=== PATIENT | female | born 1985 | race Caucasian/White ===

== ENCOUNTER 2018-09-20 03:08 | Inpatient (IN) | payer MEDICAID, OTHER ==
[~2018-09-20] VITALS: Ht 154.9 cm; Wt 89.5 kg
[2018-09-20 03:21] VITALS: Ht 154.9 cm; Wt 89.5 kg
[2018-09-20 03:22] VITALS: BP 116/72; PULSE 91; RESP 18
[2018-09-20] MEDS: LACTATED RINGER'S 1,000 ML IV SCH ×3 (03:54→08:34)
[2018-09-20] MEDS ORDERED: OXYTOCIN 30 UNITS/LR 500 ML IV SCH ×4 (04:00→10:06)
[2018-09-20] MEDS ORDERED: OXYTOCIN 30 UNITS/LR 500 ML IV PRN ×2 (04:00→10:30)
[2018-09-20] MEDS ORDERED: METHYLERGONOVINE 0.2 MG INJ IM PRN ×2 (04:00→10:30)
[2018-09-20] MEDS ORDERED: CARBOPROST 250 MCG INJ IM PRN ×2 (04:00→10:30)
[2018-09-20] MEDS ORDERED: MISOPROSTOL 200 MCG TAB PR PRN ×2 (04:00→10:30)
[2018-09-20] MEDS ORDERED: BUTORPHANOL 2 MG INJ IV PRN (04:00)
[2018-09-20] MEDS ORDERED: LIDOCAINE 1% (MPF) 30 ML INJ INJ PRN (04:00)
--- NOTE | 2018-09-20 04:13 | HP ---
Date/Time of Note Date/Time of Note DATE: 09/20/18 TIME: 04:12 OB - History Hx of Present Free Text/Dictation @39+wks GA in labor : 6 Para: 4 Care: Good Care Ultrasounds: Normal mid trimester US Obstetrical Complications: None Medical Complications: None Past Family/Social History * Past Medical, Surgical, Family and Obstetric Histories reviewed from c briones. OB Admission Exam Vital Signs Vital Signs Vital Signs Date Temp Pulse Resp B/P (MAP) Pulse Ox O2 O2 Flow FiO2 Time Delivery Rate 09/20/18 97.8 91 18 116/72 Room Air 03:22 (87) Physical Exam Abdomen: WNL Extremities: Normal Cervical Dilatation: 6cm Effacement: 75% Station: -1 Membranes: Intact Heart Rate: 140's Accelerations: Accelerations Present Decelerations: No Decelerations Varibility: Moderate Contractions on Admission: 6-10 Minutes Apart Last 72 hours Lab Results OB Assessment/Plan Reason for admission: observation Other Assessment: PMH Denies PSH Denies Plan: Expectant Management TARIK RODRIGUEZ M.D. September 20, 2018 04:13
--- NOTE | 2018-09-20 04:29 | PREAC ---
Date/Time of Note Date/Time of Note DATE: 09/20/18 TIME: : Anesthesia Eval and Record Evaluation Time Pre-Procedure Interview DATE: 09/20/18 TIME: 04:28 Age 33 Sex female NPO: 8 hrs Preoperative diagnosis labor pain Planned procedure epidural Past Medical History Past Medical History: None Surgery & Anesthesia Issues No known issue Meds Anticoagulation: No Beta Mili within 24 hr: No Reason Beta Mili not given: Pt. not on B-Mili Current Medications Lactated Ringer's 1,000 ml @ 125 mls/hr Q8H IV Last administered on 09/20/18at 03:54; Admin Dose 125 MLS/HR; Start 09/20/18 at 03:41 Butorphanol Tartrate (Stadol) 2 mg Q2H PRN IV .PAIN SCALE 6-10; Start 09/20/18 at 04:00 Lidocaine (Xylocaine 1% (Mpf)) 30 ml ONCE PRN INJ .EPISIOTOMY; Start 09/20/18 at 04:00 Oxytocin/Lactated Ringer's 500 ml @ 500 mls/hr ONCE POST IV ; Start 09/20/18 at 04:00 Oxytocin/Lactated Ringer's 500 ml @ 125 mls/hr POST IV ; Start 09/20/18 at 04:00 Oxytocin/Lactated Ringer's 500 ml @ 0 mls/hr ONCE PRN IV .VAGINAL BLEEDING; Start 09/20/18 at 04:00 Methylergonovine Maleate (Methergine) 0.2 mg ONCE PRN IM .VAGINAL BLEEDING; Start 09/20/18 at 04:00 Carboprost Tromethamine (Hemabate) 250 mcg ONCE PRN IM .VAGINAL BLEEDING; Start 09/20/18 at 04:00 Misoprostol (Cytotec) 1,000 mcg ONCE PRN NM .VAGINAL BLEEDING; Start 09/20/18 at 04:00 Oxytocin/Lactated Ringer's 500 ml @ 0 mls/hr FOR AUGMENTATION IV ; Start 09/20/18 at 04:30 Meds reviewed: Yes Allergies Coded Allergies: No Known Allergy (Verified Allergy, Unknown, 07/14/06) Allergies Reviewed: Yes Labs/Studies Labs Reviewed: Reviewed by anesthesiologist Result Diagram: 09/20/18 0330 Laboratory Tests 09/20/18 03:30 test: Positive Studies: ECG (n/a), CXR (n/a) Pre-procedure Exam Last vitals Vital Signs Date Temp Pulse Resp B/P (MAP) Pulse Ox O2 O2 Flow FiO2 Time Delivery Rate 09/20/18 97.8 91 18 116/72 Room Air 03:22 (87) Airway: Adequate mouth opening Mallampati: Mallampati I Teeth: Normal Lung: Normal Heart: Normal ASA Physical Status ASA physical status: 2 Emergency: None Planned Anesthetic Neuraxial: Epidural Planned Pain Management Epidural Pre-operative Attestations Prior to commencing anesthesia and surgery, the patient was re-evaluated, there was verification of: *The patient's identity *The results of appropriate recent lab work and preoperative vital signs *The above evaluation not changing prior to induction *Anesthetic plan, risk benefits, alternative and complications discussed with patient/family; questions answered; patient/family understands, accepts and wishes to proceed. ALMA KIRAN MD September 20, 2018 04:29
[2018-09-20] MEDS ORDERED: DIPHENHYDRAMINE 50 MG INJ IV PRN (04:30)
[2018-09-20] MEDS ORDERED: NALOXONE (0.4 MG/ML) INJ IV PRN (04:30)
[2018-09-20] MEDS ORDERED: FENTAnyl 2MCG/ML-ROPIV 0.2% 100 ML BAG EPI SCH (04:30)
[2018-09-20] MEDS ORDERED: ONDANSETRON 4 MG INJ IV PRN (04:30)
--- NOTE | 2018-09-20 05:09 | PAC ---
Date/Time of Note Date/Time of Note DATE: 09/20/18 TIME: 05:08 Post-Anesthesia Notes Post-Anesthesia Note Last documented vital signs Vital Signs Date Temp Pulse Resp B/P (MAP) Pulse Ox O2 O2 Flow FiO2 Time Delivery Rate 09/20/18 97.8 100 18 106/65 97 Room Air 05:22 Activity: WNL Respiratory function: WNL Cardiovascular function: WNL Mental status: Baseline Pain reasonably controlled: Yes Hydration appropriate: Yes Nausea/Vomiting absent: No ALMA KIRAN MD September 20, 2018 05:08
[2018-09-20 10:20] VITALS: BP 107/56; PULSE 98; RESP 20
[2018-09-20] MEDS ORDERED: HYDROCODONE/APAP (5/325) TAB PO PRN (10:30)
[2018-09-20] MEDS ORDERED: NACL 0.9% 3 ML SYG IV SCH (10:30)
[2018-09-20] MEDS ORDERED: BENZOCAINE 20% 56 ML SPRAY TOP PRN (10:30)
[2018-09-20] MEDS ORDERED: ACETAMINOPHEN 325 MG TAB PO PRN (10:30)
[2018-09-20] MEDS ORDERED: WITCH HAZEL/GLYCERIN PAD PR PRN (10:30)
[2018-09-20 12:00] VITALS: BP 112/74; PULSE 102; RESP 18
[2018-09-20] MEDS: IBUPROFEN 600 MG TAB PO SCH ×2 (12:17→18:16)
[2018-09-20 16:08] VITALS: BP 106/56; PULSE 100; RESP 18
--- NOTE | 2018-09-20 16:11 | LDN ---
Date/Time of Note Date/Time of Note DATE: 09/20/18 TIME: 16:09 Delivery Summary Assisted Vaginal Delivery: Vacuum ( bradycardia ,one attempt) Placenta Delivered: Spontaneously Meconium: none Episiotomy: No Anesthesia type: Epidural Estimated blood loss: 300 Sponge & Needle done & correct: Yes All needle counts correct: Yes Any foreign bodies felt in the: No Infant Delivery Information Apgars 1 Minute: 9 5 Minute: 9 Suctioning Nose & mouth suctioned at boni: Yes Delee suction performed: Yes Umbilical Cord Umbilical cord with: 3 Vessels Cord presentations: nuchal cord (x1) Cord Blood was obtained: Yes Mother & Baby Disposition Disposition Mom & Baby to Maternity; Good: Yes Baby to NICU: No TARIK RODRIGUEZ M.D. September 20, 2018 16:11
[2018-09-20 20:15] VITALS: BP 101/57; PULSE 90; RESP 18
[2018-09-20] MEDS: SENNA/DOCUSATE NA (8.6MG/50MG) TAB PO SCH (22:21)
[2018-09-21] MEDS: IBUPROFEN 600 MG TAB PO SCH ×5 (00:46→23:44)
[2018-09-21 04:10] VITALS: BP 114/59; PULSE 100; RESP 18
[2018-09-21 08:00] VITALS: BP 106/51; PULSE 95; RESP 18
[2018-09-21] MEDS: SENNA/DOCUSATE NA (8.6MG/50MG) TAB PO SCH ×2 (08:17→21:00)
--- NOTE | 2018-09-21 12:45 | QN ---
Documentation Comment PPD#1 is stable afebrile tolerates diet No VB +BM +voids VS stable Gen NAD Abd soft NT ND Genitalia No blood at perineum --->Discharge home --->precautions discussed TARIK RODRIGUEZ M.D. September 21, 2018 12:45
--- NOTE | 2018-09-21 12:45 | DS ---
Date/Time of Note Date/Time of Note DATE: 09/21/18 TIME: 12:45 Discharge Summary Admission/Discharge Info Admit Date/Time September 20, 2018 at 03:25 Discharge Date/Time 09/21/2018 Discharge Diagnosis Patient Condition: Good Hospital Course uneventful Primary Care Provider Joseph Luna M.D. Pending Labs Laboratory Tests Test 09/21/18 07:26 White Blood Count 16.7 10^3/ul (4.8-10.8) Red Blood Count 3.70 10^6/ul (4.20-5.40) Hemoglobin 8.4 g/dl (12.0-16.0) Hematocrit 27.5 % (37.0-47.0) Mean Corpuscular Volume 74.3 fl (82.0-101.0) Mean Corpuscular Hemoglobin 22.7 pg (29.0-33.0) Mean Corpuscular Hemoglobin Concent 30.5 g/dl (32.0-37.0) Red Cell Distribution Width 16.3 % (11.5-14.5) Platelet Count 260 10^3/UL (140-415) Mean Platelet Volume 10.0 fl (7.4-10.4) Immature Granulocytes % 1.600 % (0.001-0.429) Neutrophils % 68.3 % (39.0-77.0) Lymphocytes % 18.7 % (15.0-51.0) Monocytes % 10.3 % (0.0-11.0) Eosinophils % 0.8 % (0.0-7.0) Basophils % 0.3 % (0.0-2.0) Nucleated Red Blood Cells % 0.1 /100WBC (0.0-0.0) Immature Granulocytes # 0.260 10^3/ul (0.0-0.031) Neutrophils # 11.4 10^3/ul (1.6-7.5) Lymphocytes # 3.1 10^3/ul (0.8-2.9) Monocytes # 1.7 10^3/ul (0.3-0.9) Eosinophils # 0.1 10^3/ul (0.0-0.5) Basophils # 0.1 10^3/ul (0.0-0.1) Nucleated Red Blood Cells # 0.0 10^3/ul (0.0-0.0) JOSEPH LUNA M.D. September 21, 2018 12:45
[2018-09-21 16:00] VITALS: BP 106/72; PULSE 85; RESP 18
[2018-09-21 20:10] VITALS: BP 99/56; PULSE 72; RESP 18
[2018-09-22 04:05] VITALS: BP 110/56; PULSE 88; RESP 18
[2018-09-22] MEDS: IBUPROFEN 600 MG TAB PO SCH ×2 (06:26→11:21)
[2018-09-22 08:00] VITALS: BP 117/62; PULSE 76; RESP 18
[2018-09-22] MEDS: SENNA/DOCUSATE NA (8.6MG/50MG) TAB PO SCH (09:00)
--- NOTE | 2018-09-23 14:57 | DELSUM ---
Delivery Summary A-C Datetime Report Generated by CPN: 09/23/2018 14:56 DELIVERY PERSONNEL Lathe Turner: Duvo, Rebeca MATERNAL INFORMATION Delivery Anesthesia: Epidural Medications in Delivery: pitocin 30 units Delivery QBL (ml): 186 Placenta Cultured: Yes Maternal Complications: None LABOR SUMMARY EDC: 09/25/2018 00:00 No. Babies in Womb: 1 Attempted: No Labor Anesthesia: Epidural LABOR INFORMATION Reason for Induction: Not Applicable Onset of Labor: 09/19/2018 22:00 Complete Dilatation: 09/20/2018 07:49 Oxytocin: Augmentation Group B Beta Strep: Negative Antibiotics # of Doses: 0 Steroids Given: None Reason Steroids Not Administered: Not Applicable MEMBRANES Membranes Rupture Method: Artificial Rupture of Membranes: 09/20/2018 04:06 Length of Rupture (hr): 4.37 Amniotic Fluid Color: Clear Amniotic Fluid Amount: Small Amniotic Fluid Odor: None STAGES OF LABOR Stage 1 hr: 9 Stage 1 min: 49 Stage 2 hr: 0 Stage 2 min: 39 Stage 3 hr: 0 Stage 3 min: 2 Total Time in Labor hr: 10 Total Time in Labor min: 30 VAGINAL DELIVERY Episiotomy: None Laceration Extension: First Degree Laceration Type: Perineal Laceration Repair: Yes Initial Vag Sponge Count: 10 Final Vag Sponge Count: 10 Initial Vag Sharps Count: 1 Final Vag Sharps Count: 2 Sponge Count Correct: Yes; Vaginal Sweep Performed Sharps Count Correct: Yes BABY A INFORMATION Infant Delivery Date/Time: 09/20/2018 08:28 Method of Delivery: Vaginal Born in Route : No : N/A Forceps: N/A Vacuum Extraction: Successful Shoulder Dystocia : No ASSISTED DELIVERY BABY A Indication for Assisted Delivery: bradycardia Catheter Prior to Procedure: Yes Station Vacuum/Forcep Apply: 0 Position Vacuum/Forcep Apply: Left Occipital Anterior Vacuum Number of Pulls: 1 Vacuum Number of PopOffs: 0 Reduce Pressure btwn Ctx: Yes Vacuum Loft Worker Head: KIWI Total Time Vacuum Applied: 16 SECONDS Vacuum/Forceps Comment: MD PRESSURE CONTROLLED SHOULDER DYSTOCIA BABY A Infant Delivery Date/Time: 09/20/2018 08:28 PRESENTATION/POSITION BABY A Presentation: Cephalic Cephalic Presentation: Vertex Vertex Position: Left Occipital Anterior Breech Presentation: N/A PLACENTA INFORMATION BABY A Placenta Delivery Time : 09/20/2018 08:30 Placenta Method of Delivery: Spontaneous Placenta Status: Delivered SCORES BABY A Heart Rate 1 min: >100 bpm Resp Effort 1 min: Good Cry Reflex Irritability 1 min: Cough/Sneeze/Pulls Away Muscle Tone 1 min: Active Motion Color 1 min: Blue/Pale Resuscitation Effort 1 min: Tactile Stimulation SCORE 1 MIN: 8 Heart Rate 5 min: >100 bpm Resp Effort 5 min: Good Cry Reflex Irritability 5 min: Cough/Sneeze/Pulls Away Muscle Tone 5 min: Active Motion Color 5 min: Body [place], Extremit Blue Resuscitation Effort 5 min: Tactile Stimulation SCORE 5 MIN: 9 INFANT INFORMATION BABY A Gestational Age at Delivery: 39.2 Gestational Status: Full Term- 39- 40.6 Weeks Outcome : Liveborn Infant Condition : Stable Sex: Male IDENTIFICATION/MEDS BABY A ID Band Number: [id number] ID Band Location: Right Leg; Left Arm Sensor Applied: Yes Sensor Number: [id number] Sensor Location : Cord Clamp Vitamin K Given : Not Given Erythromycin Given: Not Given WEIGHT/LENGTH BABY A Infant Birthweight (gm): 3590 Infant Weight (lb): 7 Infant Weight (oz): 15 Length (in): 19.50 Length (cm): 49.53 CORD INFORMATION BABY A No. Cord Vessels: 3 Nuchal Cord : Around Neck x1, Tight Cord Blood Taken: Yes Infant Suction: Mouth; Nose ASSESSMENT BABY A Infant Complications: Extended Bradycardi Physical Findings at Delivery: Within Normal Limits Physical Findings- Other: SCALP INTACT Infant Respirations: Appears Normal Health Coach/ALS Called : Yes Care By: Mariana BUSTOS Transferred To: Remains with Mother
== END 2018-09-22 14:25 | disposition home or self-care (01) | DRG 807 ==
LOC: OBT 03:08 → L-D 03:10 → OBT 03:25 → L-D 03:25 → PP1 10:12
PROVIDERS: ADMIT Obstetrics & Gynecology; ATTEND Obstetrics & Gynecology
PROC: 10D07Z6 Extraction of Products of Conception, Vacuum, Via Natural or Artificial Opening (ICD-10-PCS; principal; 2018-09-20)
DX: O76 Abnormality in fetal heart rate and rhythm complicating labor and delivery (principal); Z37.0 Single live birth; O69.81X0 Labor and delivery complicated by cord around neck, without compression, not applicable or unspecified; Z3A.39 39 weeks gestation of pregnancy
CPT/HCPCS: 62322; 85025; 85610; 85730; 86592; 86850; 86900; 86901; 87340; G0463; J2210; J2590; J3010; J7120